=== PATIENT | male | born 1990 | race African-American/Black ===

== ENCOUNTER 2021-07-19 10:20 | Inpatient (IN) | payer SELFPAY ==
[~2021-07-19] VITALS: Ht 175.3 cm; Wt 58.2 kg
[2021-07-19 11:00] VITALS: BP 124/88; PULSE 82; TEMP 98
[2021-07-19 15:32] LABS: BASO # 0.1 K/mm3 (0.0-0.2); BASO % 1.2 % (0.0-2.0); EOS # 0.1 K/mm3 (0.0-0.7); GRAN # 2.3 K/mm3 (1.4-6.5); GRAN % 53.8 % (42.2-75.2); HEMOGLOBIN 10.2 g/dl (13.5-18.0); LYMPH # 1.3 K/mm3 (1.2-3.4); LYMPH % 30.8 % (20.0-51.0); MEAN CELL VOLUME 81 fl (80.0-100.0); MEAN CORPUSCULAR HEMOGLOBIN 26 pg (27-31); MEAN CORPUSCULAR HGB CONC 32 g/dl (33.0-37.0); MEAN PLATELET VOLUME 11.5 fl (7.4-10.4); MONO # 0.5 K/mm3 (0.1-0.6); MONO % 10.5 % (1.7-9.3); PLATELET COUNT 171 K/mm3 (130-400); RED BLOOD COUNT 3.88 M/mm3 (4.20-5.60); REDCELL DISTRIBUTION WIDTH-CV 15.9 % (11.5-14.5)
[2021-07-19 15:34] LABS: HEMATOCRIT 31.6 % (42.0-52.0)
[2021-07-19 15:39] VITALS: BP 123/91; PULSE 88; TEMP 98.3
[2021-07-19 15:48] LABS: INR 1.1 (0.8-3.0); PROTHROMBIN TIME 11.9 SECONDS (9.7-12.8)
[2021-07-19 15:50] LABS: PARTIAL THROMBOPLASTIN TIME 31.9 SECONDS (26.0-37.0)
[2021-07-19 15:56] LABS: ALBUMIN 4.2 gm/dL (3.5-5.0); BILIRUBIN,TOTAL 2.2 mg/dL (0.2-1.2); CREATININE, serum 0.76 mg/dL (0.72-1.25); MAGNESIUM 1.9 mg/dL (1.6-2.6); POTASSIUM 3.5 mmol/L (3.5-4.5); TOTAL PROTEIN 7.1 gm/dL (6.2-8.1)
[2021-07-19 19:52] VITALS: BP 153/107; PULSE 103; TEMP 98.3
[2021-07-19 21:23] VITALS: BP 150/102; PULSE 107; TEMP 97.5
[2021-07-20] VITALS (574 sets, daily range): BP systolic 107–159; BP diastolic 74–109; PULSE 65–93; TEMP 97.5–97.9; O2SAT 40–100
--- NOTE | 2021-07-20 01:00 | NUR ---
ALL RESTRAINTS ON INTACT WITH CIRCULATION NOTED, PATIENT HAS JUST ARRIVED, IV MEDICATION PRECEDEX BEGINS 0.2 MG/KG/HR
--- NOTE | 2021-07-20 01:15 | NUR ---
LEFT LOWER LIMB RESTRAINT REMOVED, PATIENT ASLEEP/ PUPILS = AND REACTIVE, AT 4MM
--- NOTE | 2021-07-20 01:19 | NUR ---
At beginning of shift, around 1840, patient having hallucinations. Day shift reported that he had been having hallucinations throughout their shift, scoring 4-6 on detox protocol. First detox protocol for this nurse, patient scored an 11. Given Ativan per orders. See MAR for administration times. Patient agitated, pacing up and down hallways, going into other rooms and having increased aggitation with staff when redirecting out of rooms. One-on-one sitter required for patient. Medications not effective for agitation and anxiety, and started to escalate more. Notified TRACY Garcia. Patient ripped out IV, not allowing staff to give medications. Called security for assistance with giving medications and for staff and patient safety, as patient was hitting islas, tearing at computer in room, etc. Given medications IM per orders. Around 0045, medications started to become helpful and seemed to be getting drowsy. Patient transferred to ICU for close monitoring and Precidex drip at approximately 0115. Patient did threaten bodily harm to staff, stating "I will beat the shit out of you," and "I'm going to shoot you." spring production supervisor aware and present during threats. Called [employer] who came to hospital. .
--- NOTE | 2021-07-20 02:15 | NUR ---
PATIENT IS SLEEPING WELL NOT DISTURBED PUPILS = AND REACTIVE AT 4 MM, PRECEDEX CONTINUES INFUSING AT 0.2 MG/KG/HR RIGHT LOWER LIMB REMOVED FROM RESTAINT
--- NOTE | 2021-07-20 03:13 | NUR ---
REMOVAL OF RIGHT WRIST RESTRAINT, PATIENT CONTINUES TO SLEEP NOT DISTURBED PUPILS UNCHAMGED = AND REACTIVE AT 4 MM
--- NOTE | 2021-07-20 03:30 | NUR ---
REMOVED LAST RESTRAINT RIGHT ARM PATIENT ASLEEP RELAXED PUPILS = AND REACIVE SITTER AT BEDSIDE
[2021-07-20 04:41] LABS: BASO % 0.8 % (0.0-2.0); EOS # 0.2 K/mm3 (0.0-0.7); EOS % 3.1 % (0.0-4.0); GRAN # 2.5 K/mm3 (1.4-6.5); GRAN % 51.2 % (42.2-75.2); HEMOGLOBIN 10.1 g/dl (13.5-18.0); LYMPH # 1.7 K/mm3 (1.2-3.4); LYMPH % 34.8 % (20.0-51.0); MEAN CELL VOLUME 81 fl (80.0-100.0); MEAN CORPUSCULAR HEMOGLOBIN 27 pg (27-31); MEAN CORPUSCULAR HGB CONC 33 g/dl (33.0-37.0); MEAN PLATELET VOLUME 11.7 fl (7.4-10.4); MONO # 0.5 K/mm3 (0.1-0.6); MONO % 9.5 % (1.7-9.3); PLATELET COUNT 159 K/mm3 (130-400); REDCELL DISTRIBUTION WIDTH-CV 15.8 % (11.5-14.5)
[2021-07-20 05:08] LABS: CALCIUM 8.8 mg/dL (8.4-10.2); CREATININE, serum 0.66 mg/dL (0.72-1.25); HEMATOCRIT 30.9 % (42.0-52.0); MAGNESIUM 1.8 mg/dL (1.6-2.6); POTASSIUM 3.5 mmol/L (3.5-4.5)
--- NOTE | 2021-07-20 05:32 | NUR ---
PATIENT AWAKENS AND HAS A NEED TO URINATE, STANDS BESIDES BED AND URINATES INTO COMMODE, 600 CC, BACK TO BED LYING LEFT LATERAL RECUMBENT ASLEEP, SOME TREMOR SHAKES WITH MOVEMENT
--- NOTE | 2021-07-20 10:00 | NUR ---
Patient suddenly woke up on bed; very obvious tremors in hands noted. Patient was twitching and rubbing his face and attempting to cover his eyes. Lights were turned off. Patient was cooperative with assessment and verbal commands. Was able to tell this nurse that he was in [place] but did not know the city or that he was in the hospital. Stated he knew why he was here, but when asked to clarify only stated "to get better". Also denies hallucinations but then stated there are "alot of puppies and dogs in here". Patient attempted to get up from bed several times and was pulling at monitoring devices. Would lay back down when asked and monitoring devices were concealed as possible to deter from pulling. Will continue to monitor. continue to montir
--- NOTE | 2021-07-20 13:36 | NUR ---
Assisted up to commode to void. Ate 100% of lunch. Bed alarm set; will continue to monitor.
--- NOTE | 2021-07-20 14:59 | NUR ---
[facility] [employer] did not meet with patient today to complete intake as he had behaviors last night that resulted in [facility] [employer] being contacted. See nursing notes for further detail. Patient has no emergency contact/next of kin in EMR or in the physical chart. KARL located facesheet from [facility] on patient's chart which also did not have next of kin information. Patient was transferred from [facility] last evening. KARL contacted [facility] as they transferred patient from [facility] and they did not have any next of kin information. KARL then contacted [facility] and they also did not have any next of kin information. KARL collaborated with CARLOS Marques who provided ph#[phone] and advised patient's mom is Pat Holliday. KARL contacted this number and a man answered the phone. He stated this is the wrong number. The man stated his 's name is Pat but she's not Pat Holliday and the patient is not her son. KARL contacted [place] [employer] and requested an officer go by the residence to [facility] to locate patient's mother and give her SW number.
--- NOTE | 2021-07-20 15:30 | NUR ---
Full Roll Inspector was contacted by patient's mother, Pat Holliday (ph#[phone]). Pat advised patient lives with her and does not have a primary care physician. Pat advised patient also does not currenlty receive any mental health services. Patient was employed but lost his job about a month ago. Pat advised patient is not and has no children. Patient's legal next of kin would be Pat and his father, Michael Rivero. Discharge Plan: Unknown at this time
--- NOTE | 2021-07-20 16:00 | NUR ---
Updated patient's mother via telephone; all questions and concerns addressed at this time.
--- NOTE | 2021-07-20 20:11 | NUR ---
PT SITTING UP IN BED, THIS SHIFT HAVE HELPED PT TO BSC TO VOID, LINENS CHANGED, WASH CLOTHES PROVIDED TO CLEAN UP, AND TEETH BRUSHED. PT ALERT AND ORIENTED BUT RESTLESS/FIDGETING. HAS HAD BOUTS OF TEARFULLNESS. STATES HAS A LOT GOING ON WITH FAMIY AND ALWAYS FEELS LAST, IN NOT THOUGHT OF BEING IMPORTANT. PT EXCOURAGED TO EXPRESS FEELINGS, CALM CONVERSATION HAD WITH RN. DISCUSSED THE PSYCH CONSULT AND SOMEONE WILL BE COMING TO SPEAK WITH HIM. ENCOURAGED PT TO BE OPEN AND HONEST WITH THESE FEELINGS. PT STATES UNDERSTANDING WITH PLAN OF CARE, HOWEVER CONTINUES TO FIDGET WITH MONITOR LEADS. NOTABLE TREMORS, DENIES PAIN, NO N/V. CALL LIGHT IN HAND, AND BED ALARM ON. WILL CONTINUE TO MONITOR.
[2021-07-21] VITALS (557 sets, daily range): BP systolic 117–148; BP diastolic 85–112; PULSE 58–122; TEMP 97.7–99.3; O2SAT 30–100
--- NOTE | 2021-07-21 00:01 | NUR ---
PT SLEEPING SOUNDLY AT THIS TIME. VSS. WILL CONTINUE TO MONITOR.
[2021-07-21 06:34] LABS: BASO % 1.1 % (0.0-2.0); EOS # 0.1 K/mm3 (0.0-0.7); EOS % 3.9 % (0.0-4.0); GRAN # 1.4 K/mm3 (1.4-6.5); GRAN % 40.6 % (42.2-75.2); HEMOGLOBIN 11.3 g/dl (13.5-18.0); LYMPH # 1.6 K/mm3 (1.2-3.4); LYMPH % 44.8 % (20.0-51.0); MEAN CELL VOLUME 81 fl (80.0-100.0); MEAN CORPUSCULAR HEMOGLOBIN 27 pg (27-31); MEAN CORPUSCULAR HGB CONC 33 g/dl (33.0-37.0); MEAN PLATELET VOLUME 11.9 fl (7.4-10.4); MONO # 0.3 K/mm3 (0.1-0.6); MONO % 9.3 % (1.7-9.3); PLATELET COUNT 155 K/mm3 (130-400); RED BLOOD COUNT 4.27 M/mm3 (4.20-5.60); REDCELL DISTRIBUTION WIDTH-CV 15.8 % (11.5-14.5)
[2021-07-21 06:48] LABS: HEMATOCRIT 34.7 % (42.0-52.0)
[2021-07-21 07:33] LABS: ALBUMIN 3.8 gm/dL (3.5-5.0); BILIRUBIN,TOTAL 1.9 mg/dL (0.2-1.2); CALCIUM 9.3 mg/dL (8.4-10.2); CREATININE, serum 0.79 mg/dL (0.72-1.25); MAGNESIUM 1.9 mg/dL (1.6-2.6); POTASSIUM 4.1 mmol/L (3.5-4.5); TOTAL PROTEIN 6.8 gm/dL (6.2-8.1)
--- NOTE | 2021-07-21 16:29 | NUR ---
MD Yen (psych) here to see patient
--- NOTE | 2021-07-21 17:41 | NUR ---
Report phoned to CARLOS Chin - pt to be transfered to [facility]
--- NOTE | 2021-07-21 21:15 | NUR ---
Patient assessed around 2014. Scored a 9 on detox protocol: low grade temp, HR, BP, tremors, clammy, anxiety. Given PRN Ativan per orders. Deneis pain and discomfort. Peripheral INT to right forearm leaking. Taken out and started new IV site to left forearm. Tolerated well. Denies SOB and dyspnea. LS CTA. HR-tachycardia. Telemetry in place. BSAx4. No edema. No hallucinations noted at this time. Assisted to bathroom and back to recliner as requested. Voices no questions, needs, or concerns at this time. In recliner with call light within reach. Chair alarm in place.
[2021-07-22] VITALS (10 sets, daily range): BP systolic 107–134; BP diastolic 72–95; PULSE 91–122; TEMP 97.4–98.6
--- NOTE | 2021-07-22 05:50 | NUR ---
Patient seemed to be resting in bed from apprixmately [id number], otherwise has been awake most of night. No hallucinations noted this shift. Continues to score on detox protocol, and received PRN Ativan per orders. Voices no questions, needs, or concerns at this time. In bed with call light within reach.
[2021-07-22 09:03] LABS: ALBUMIN 3.9 gm/dL (3.5-5.0); BILIRUBIN,TOTAL 1.2 mg/dL (0.2-1.2); CALCIUM 9.1 mg/dL (8.4-10.2); CREATININE, serum 0.75 mg/dL (0.72-1.25); MAGNESIUM 1.9 mg/dL (1.6-2.6); POTASSIUM 3.7 mmol/L (3.5-4.5); TOTAL PROTEIN 6.8 gm/dL (6.2-8.1)
--- NOTE | 2021-07-22 20:52 | NUR ---
Patient assessed around 2009. Alert and oriented, and able to make needs known. Denies pain and discomfort. Peripheral INT to left forearm. Received PRN Ativan per detox protocol. Given PRN Melatonin for insomnia. Voices no further questions, needs, or concerns at this time. In bed with call light within reach.
[2021-07-23] VITALS (11 sets, daily range): BP systolic 113–146; BP diastolic 64–101; PULSE 71–116; TEMP 97.4–99.7
--- NOTE | 2021-07-23 05:55 | NUR ---
Patient reports being able to sleep for short period of time during the night. Received PRN Ativan twice this shift for detox. Voices no questions, needs, or concerns at this time. In bed with call light within reach.
[2021-07-23 07:03] LABS: BASO # 0.1 K/mm3 (0.0-0.2); BASO % 1.5 % (0.0-2.0); EOS # 0.1 K/mm3 (0.0-0.7); EOS % 2.6 % (0.0-4.0); GRAN # 1.4 K/mm3 (1.4-6.5); GRAN % 41.4 % (42.2-75.2); HEMOGLOBIN 10.8 g/dl (13.5-18.0); LYMPH # 1.4 K/mm3 (1.2-3.4); LYMPH % 41.3 % (20.0-51.0); MEAN CELL VOLUME 81 fl (80.0-100.0); MEAN CORPUSCULAR HEMOGLOBIN 26 pg (27-31); MEAN CORPUSCULAR HGB CONC 32 g/dl (33.0-37.0); MEAN PLATELET VOLUME 11.9 fl (7.4-10.4); MONO # 0.4 K/mm3 (0.1-0.6); MONO % 12.6 % (1.7-9.3); PLATELET COUNT 156 K/mm3 (130-400); RED BLOOD COUNT 4.12 M/mm3 (4.20-5.60); REDCELL DISTRIBUTION WIDTH-CV 15.6 % (11.5-14.5)
[2021-07-23 07:22] LABS: CALCIUM 9.4 mg/dL (8.4-10.2); CREATININE, serum 0.79 mg/dL (0.72-1.25); POTASSIUM 4.1 mmol/L (3.5-4.5)
[2021-07-23 07:39] LABS: HEMATOCRIT 33.5 % (42.0-52.0)
--- NOTE | 2021-07-23 14:32 | NUR ---
SW met with the patient to follow up and review discharge plan. The patient confirms that he lives with his mother in [place] and plans on returning home with her upon discharge. SW addressed outpatient alcohol treatment upon discharge. The patient declined and declined a list of local resources for treatment. No additional needs at this time. *Discharge plan: home with mother*
--- NOTE | 2021-07-23 17:55 | NUR ---
PT NOT SCORING ON CIWA LAST 3 ASSESMENTS. VSS. MILD TREMORS REMAIN. PT STEADY ON FEET. A/OX4, PT IS PLAYING CARDS WITH HIS BROTHER WHO IS BEDSIDE. PT VERY PLEASANT AND COOPERATIVE AND HAS REMAINED MOTIVATED THROUGH OUT THIS SHIFT. ALL NEEDS MET THIS SHIFT. CALL LIGHT WITHIN REACH.
[2021-07-24] VITALS (14 sets, daily range): BP systolic 13–147; BP diastolic 72–99; PULSE 65–104; TEMP 97.4–98.8
--- NOTE | 2021-07-24 02:48 | NUR ---
ASSESSMENT COMPLETE FOR THIS SHIFT. PT RESTING IN BED WATCHING TV. PT'S YOUNGER BROTHER VISITED HIM TONIGHT AND PLAYED CARDS WITH HIM. PT DENIED PAIN, PALPITATIONS, N,V,D, SOB OR DIZZINESS. PT HAS HAD ONE HIGHER CIWA THIS SHIFT SO FAR. ATIVAN GIVEN TO HELP WITH CIWA SYMPTOMS. WILL CONTINUE TO MONITOR. PT EXPRESSED NO OTHER NEEDS AT THIS TIME. CALL LIGHT WITHIN REACH.
--- NOTE | 2021-07-24 13:18 | NUR ---
THIS NURSE WAS CONTACTED BY TELE REP TO REPORT PT HEART RATE SUSTAINING IN THE 140'S , UPON CHECK UP, PT IN ROOM EXERCISING. PT STABLE.
--- NOTE | 2021-07-24 18:20 | NUR ---
PT CIWA PROTOCOL SCORING 0-1 THORUGHOUT THIS SHIFT. VSS. VISIBLE TREMORS. NO ANXIETY. NO ATIVAN GIVEN THIS SHIFT. PT REMAINS MOTIVATED AND COOPERATIVE. ALL NEEDS MET THIS SHIFT. CALL LIGHT WITHN REACH.
--- NOTE | 2021-07-24 21:01 | NUR ---
ASSESSMENT COMPLETE FOR THIS SHIFT. PT RESTING IN BED WATCHING A MOVIE ON HIS LAPTOP. PT DENIES PAIN, PALPITATIONS, N,V,D, SOB OR DIZZINESS. PT SCORED A 2 ON CIWA AND DOES NOT NEED ANY INTERVENTION AT THIS TIME. WILL CONTINUE TO MONITOR. PT EXPRESSED NO OTHER NEEDS AT THIS TIME. CALL LIGHT WITHIN REACH.
[2021-07-25] VITALS (13 sets, daily range): BP systolic 120–139; BP diastolic 74–99; PULSE 77–99; TEMP 97.9–98.9
--- NOTE | 2021-07-25 07:24 | NUR ---
PT SITTING UP IN BED WATCHING A MOVIE. PT STATES THAT HE WOULD LIKE TO HAVE MORE WATER. PITCHER WAS FILLED UP FOR HIM. HE ALSO STATES THAT HE WOULD LIKE TO TAKE A SHOWER LATER SO HIS IV WAS WRAPPED AND COVERED PER HIS REQUEST. PT STATES NO OTHER NEEDS AT THIS TIME. PT STATES NO PAIN AT THIS TIME. CALL LIGHT IS WITHIN REACH.
[2021-07-25 07:26] LABS: BASO # 0.1 K/mm3 (0.0-0.2); BASO % 1.4 % (0.0-2.0); EOS # 0.1 K/mm3 (0.0-0.7); EOS % 3.1 % (0.0-4.0); GRAN # 1.7 K/mm3 (1.4-6.5); GRAN % 47.4 % (42.2-75.2); HEMOGLOBIN 11.8 g/dl (13.5-18.0); LYMPH # 1.2 K/mm3 (1.2-3.4); LYMPH % 34.2 % (20.0-51.0); MEAN CELL VOLUME 81 fl (80.0-100.0); MEAN CORPUSCULAR HEMOGLOBIN 26 pg (27-31); MEAN CORPUSCULAR HGB CONC 32 g/dl (33.0-37.0); MEAN PLATELET VOLUME 11.6 fl (7.4-10.4); MONO # 0.5 K/mm3 (0.1-0.6); MONO % 13.3 % (1.7-9.3); PLATELET COUNT 173 K/mm3 (130-400); RED BLOOD COUNT 4.52 M/mm3 (4.20-5.60); REDCELL DISTRIBUTION WIDTH-CV 15.4 % (11.5-14.5)
[2021-07-25 07:27] LABS: HEMATOCRIT 36.4 % (42.0-52.0)
[2021-07-25 07:32] LABS: CREATININE, serum 0.79 mg/dL (0.72-1.25); POTASSIUM 3.5 mmol/L (3.5-4.5)
--- NOTE | 2021-07-25 11:04 | NUR ---
PT UP TO SHOWER VIA SELF. PT STATES THAT HE WOULD LIKE TO HAVE HIS WATER REFILLED. PITCHER WAS FILLED UP FOR PT. PT STATES NO OTHER NEEDS AT THIS TIME. PT STATES NO PAIN. CALL LIGHT IS WITSERENE OLSON.
== END 2021-07-25 16:18 | disposition home or self-care (01) | DRG 897 ==
LOC: SURG 10:20 → ICU 11:07 → MEDICAL 07-21 18:30
PROVIDERS: Physician Assistant; Student in an Organized Health Care Education/Training Program; ADMIT Internal Medicine
DX: F10.139 Alcohol abuse with withdrawal, unspecified (principal); E87.2 Acidosis; F17.210 Nicotine dependence, cigarettes, uncomplicated; F12.10 Cannabis abuse, uncomplicated; E87.6 Hypokalemia; D64.9 Anemia, unspecified; E87.8 Other disorders of electrolyte and fluid balance, not elsewhere classified; F19.94 Other psychoactive substance use, unspecified with psychoactive substance-induced mood disorder; Z56.0 Unemployment, unspecified; Z23 Encounter for immunization
CPT/HCPCS: 99223-AI; 99231-AI; 99232-AI; 99233-AI; 99239; J1200; J1630; J1650; J2060; J3480